=== PATIENT | male | born 1960 | race Two or more races ===

== ENCOUNTER 2020-11-13 10:15 | Emergency (ER) | payer MEDICAID ==
[~2020-11-13] VITALS: Ht 170.2 cm; Wt 82.0 kg
[2020-11-13] MEDS ORDERED: HYDRALAZINE 20MG/ML VIAL IV ONE (10:30)
[2020-11-13] MEDS ORDERED: SODIUM CHLORIDE 0.9% 1,000 ML IV ONE (10:30)
[2020-11-13 10:55] LABS: BASOPHILS % 1.4 % (0.0-2.0); EOSINOPHILS % 1.6 % (0.0-5.0); HEMATOCRIT. 45.1 % (42.0-52.0); HEMOGLOBIN. 15.2 g/dL (14.0-18.0); LYMPHOCYTES % 20.9 % (20.0-50.0); MEAN CORPUSCULAR HEMOGLOBIN 32.7 pg (28.0-32.0); MEAN CORPUSCULAR VOLUME 97.2 fL (80.0-94.0); MEAN PLATELET VOLUME 8.5 fl (7.4-10.4); MONOCYTES % 8.7 % (2.0-8.0); NEUTROPHILS % 67.4 % (40.0-76.0); PLATELET 252 x1000/uL (130-400); RED BLOOD CELL COUNT 4.64 mill/uL (4.7-6.1); RED CELL DISTRIBUTION WIDTH 15.8 % (11.6-14.6)
[2020-11-13 11:02] LABS: CHLORIDE 105 mEq/L (98-107)
[2020-11-13 11:07] LABS: ETHANOL BLOOD 67 mg/dL
[2020-11-13 11:13] LABS: PARTIAL THROMBOPLASTIN TIME 28.4 sec (23.4-31.0); PROTHROMBIN TIME 10.3 sec (9.6-11.0)
[2020-11-13 12:00] LABS: CLARITY URINE CLEAR (CLEAR); COLOR URINE YELLOW (YELLOW); KETONES URINE NEGATIVE (NEGATIVE); LEUKOCYTE ESTERASE URINE NEGATIVE (NEGATIVE); NITRITE URINE NEGATIVE (NEGATIVE); OCCULT BLOOD URINE NEGATIVE (NEGATIVE); PH URINE 6.5 (4.5-8.0); PROTEIN URINE 3+ (NEGATIVE); UROBILINOGEN URINE 0.2 E.U./dL (0.2-1.0)
[2020-11-13 12:34] LABS: *AMPHETAMINES SCREEN URINE NEGATIVE (NEGATIVE); *BARBITURATES SCREEN URINE NEGATIVE (NEGATIVE); *BENZODIAZEPINES SCREEN URINE NEGATIVE (NEGATIVE); *COCAINE SCREEN URINE PRESUMTIVE POSITIVE (NEGATIVE); METHADONE URINE SCREEN NEGATIVE (NEGATIVE)
[2020-11-13 12:35] LABS: CANNABINOID URINE SCREEN NEGATIVE (NEGATIVE); OPIATES URINE SCREEN NEGATIVE (NEGATIVE); PHENCYCLIDINE URINE SCREEN PRESUMTIVE POSITIVE (NEGATIVE)
[2020-11-13 14:05] VITALS: BP 149/77
== END 2020-11-13 15:20 | disposition home or self-care (01) ==
LOC: ER 10:15 → EDBD 10:15 → ER 15:20
DX: R41.82 Altered mental status, unspecified (principal); I10 Essential (primary) hypertension; F19.10 Other psychoactive substance abuse, uncomplicated; F10.129 Alcohol abuse with intoxication, unspecified; F14.90 Cocaine use, unspecified, uncomplicated; F15.90 Other stimulant use, unspecified, uncomplicated; Y90.3 Blood alcohol level of 60-79 mg/100 ml; F17.200 Nicotine dependence, unspecified, uncomplicated
CPT/HCPCS: 36415; 70450; 71045; 80053; 80305; 80320; 81003; 83880; 84484; 85025; 85610; 85730; 93005; 96361; 96374; 99285; J0360; J7030; Z7610; G0480

== ENCOUNTER 2022-02-22 17:37 | Emergency (ER) | payer MEDICAID, OTHER ==
[~2022-02-22] VITALS: Ht 170.2 cm; Wt 59.0 kg
[2022-02-22 17:43] VITALS: BP 148/84
[2022-02-22] MEDS ORDERED: KETOROLAC 60MG/2ML VIAL IM ONE (20:45)
[2022-02-22] MEDS ORDERED: CYCL10TA7 MT (21:26)
[2022-02-22] MEDS ORDERED: IBUP-2029 MT (21:26)
== END 2022-02-22 21:46 | disposition home or self-care (01) ==
LOC: ER 17:37
DX: M54.50 Low back pain, unspecified (principal); M54.30 Sciatica, unspecified side; I50.9 Heart failure, unspecified
CPT/HCPCS: 73502; 96372; 99283; J1885